=== PATIENT | male | born 1990 | race Caucasian/White ===

== ENCOUNTER 2022-02-06 17:35 | Emergency (ER) | payer OTHER, SELFPAY ==
[2022-02-06 18:11] VITALS: BP 174/76; PULSE 100; RESP 18; TEMP 36.6; O2SAT 99; BMI 27.1
[2022-02-06 19:40] VITALS: BP 137/96; PULSE 88; RESP 18; O2SAT 99
--- NOTE | 2022-02-06 19:54 | ED.NURSE ---
right eye 20/25 perfect, left eye 20/25 minus one. Both eyes 20/25 perfect
--- NOTE | 2022-02-06 20:35 | ED.NEUROSD ---
HPI - Neuro Symptoms/Deficit General Date Seen: 02/06/22 Chief Complaint: Neuro Symptoms/Altered Deficit Stated Complaint: Blurred vision in L eye, Possible Anxiety attack Time Seen by Provider: 02/06/22 19:40 Source: patient Mode of arrival: ambulatory Limitations: no limitations History of Present Illness HPI Narrative: 31-year-old gentleman comes in with this family with a complaint about 2 hours ago had this episode when he was on the floor of his vision being a little wave you on the left side. Only on his lateral visual field, of his left eye. This went away after approximately 20 minutes. He felt back to normal was not associated with a headache any numbness tingling weakness, he did get a fair bit of anxiety which is says is normal for him over the C just want to get checked out, he does not wear glasses nor does were contacts, no history of feeling sick fevers chills sweats sore throat or any other Ng else, he did not get anything in his eye. Review of Systems Status of ROS: Reports: 10 or more systems reviewed and unremarkable except as noted in History and below PFSH PFS Social History Smoking Status: Never smoker Do you use any of these nicotine containing products: None Second hand tobacco smoke exposure: No How often do you have a drink containing alcohol: 4 or more times a week How many standard drinks containing alcohol do you have on a typical day: 1 or 2 How often do you have six or more drinks on one occasion: Less than monthly AUDIT-C Alcohol total score: 5 Non-prescribed substance use: denies use service: No Exam Narrative: Exam Narrative: Patient is seen and stabilization room 2 is in no apparent distress he is speaking to me normally oriented x3, cranial nerves 3-12 are normal pupils equal round reactive to light there is no diplopia, fundi appear normal, no nystagmus, no swelling around lid region, TMs are normal oropharynx normal neck is supple carotid upstrokes are equal bilaterally heart sounds are normal. Chest is clear heart sounds are normal neurologically intact in his upper lower extremities able to walk and talk normally, reflexes normal. Visual acuity bilaterally and consensual is 20/25. Const: Vital Signs, click to edit/add: Vital Signs - 24 hr 02/06/22 18:11 02/06/22 19:40 Temperature 97.8 F Pulse Rate [Pulse Oximeter] 100 88 Respiratory Rate 18 18 Blood Pressure [Ri ght Upper Arm] 174/76 H 137/96 H Pulse Oximetry 99 99 Oxygen Delivery Me thod Room Air Room Air Documenting provider has reviewed patient's vital signs: yes Common normals: no apparent distress Exam limitations: altered mental status General appearance: cooperative and comfortable Course Vital Signs Vital signs: Initial Vital Signs Temperature 97.8 F 02/06/22 18:11 Temperature Source Temporal Artery Scan 02/06/22 18:11 Pulse Rate 100 02/06/22 18:11 Pulse Rhythm 02/06/22 18:11 Respiratory Rate 18 02/06/22 18:11 Blood Pressure 174/76 H 02/06/22 18:11 Blood Pressure Mean 108 02/06/22 18:11 Blood Pressure Position Sitting 02/06/22 18:11 Pulse Oximetry 99 02/06/22 18:11 Oxygen Delivery Method 02/06/22 18:11 Vital Signs Temperature 97.8 F 02/06/22 18:11 Pulse Rate 100 02/06/22 18:11 Respiratory Rate 18 02/06/22 18:11 Blood Pressure 174/76 H 02/06/22 18:11 Pulse Oximetry 99 02/06/22 18:11 Oxygen Delivery Method 02/06/22 18:11 Temperature 97.8 F 02/06/22 18:11 Pulse Rate 88 02/06/22 19:40 Respiratory Rate 18 02/06/22 19:40 Blood Pressure 137/96 H 02/06/22 19:40 Pulse Oximetry 99 02/06/22 19:40 Oxygen Delivery Method 02/06/22 19:40 MDM - Neuro Symptoms/Deficit MDM Narrative Medical decision making narrative: Discussed with this gentleman that I think this is probably secondary to floaters, I do not think this is a migraine headache, with a classic aura, as he does not have the following headache. No think this is other some neurologic phenomena that he has, but he will have to watch this closely. Reassurance was given, and I think we can discharge him at this point. Discharge Plan Discharge Clinical Impression: Floaters in visual field, Vitreous floaters of left eye, Left eye complaint Patient Disposition: Home w/ Parent or Adult Condition: Stable Instructions: Visual Floaters (ED) Additional Instructions: reassurance given, follow up with optometry as needed Stand Alone Forms: MyHealth Info Instructions
== END 2022-02-06 20:44 | disposition home or self-care (01) ==
LOC: ED 20:35
PROVIDERS: Emergency Provider Family Medicine; PCP Family Medicine
DX: H43.392 Other vitreous opacities, left eye (principal)
CPT/HCPCS: 99283